=== PATIENT | female | born 2000 | race African-American/Black ===

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

== ENCOUNTER → 2020-09-21 | Outpatient (CLI) | payer BC ==
[2020-09-21 15:07] LABS: BASOPHILS % 0.2 % (0.0-2.0); HEMATOCRIT. 37.3 % (36.0-48.0); HEMOGLOBIN. 13.2 g/dL (12.0-16.0); LYMPHOCYTES % 36.3 % (20.0-50.0); MEAN CORPUSCULAR HEMOGLOBIN 31.1 pg (28.0-32.0); MEAN CORPUSCULAR VOLUME 87.8 fL (81.0-99.0); MEAN PLATELET VOLUME 8.5 fl (7.4-10.4); MONOCYTES % 5.6 % (2.0-8.0); NEUTROPHILS % 57.9 % (40.0-76.0); PLATELET 245 x1000/uL (130-400); RED BLOOD CELL COUNT 4.25 mill/uL (4.2-5.4); RED CELL DISTRIBUTION WIDTH 12.9 % (11.6-14.6)
[2020-09-21 15:15] LABS: CHLORIDE 107 mEq/L (98-107)
[2020-09-21 15:22] LABS: TOTAL IRON BINDING CAPACITY 298 ug/dL (250-450)
[2020-09-21 15:23] LABS: LDL CHOLESTEROL 113 mg/dL (5-100)
[2020-09-21 15:24] LABS: HDL CHOLESTEROL 55 mg/dL (40-59)
[2020-09-21 15:28] LABS: CLARITY URINE CLEAR (CLEAR); COLOR URINE YELLOW (YELLOW); KETONES URINE NEGATIVE (NEGATIVE); LEUKOCYTE ESTERASE URINE NEGATIVE (NEGATIVE); NITRITE URINE NEGATIVE (NEGATIVE); OCCULT BLOOD URINE NEGATIVE (NEGATIVE); PH URINE 7.5 (4.5-8.0); PROTEIN URINE NEGATIVE (NEGATIVE); SPECIFIC GRAVITY URINE 1.023 (1.005-1.030); UROBILINOGEN URINE 0.2 E.U./dL (0.2-1.0)
[2020-09-21 15:41] LABS: HEPATITIS B SURFACE ANTIGEN NEGATIVE
[2020-09-21 15:59] LABS: VITAMIN B12 SERUM 332 pg/mL (211-911)
[2020-09-21 16:10] LABS: HEPATITIS A AB IGM NEGATIVE (NEGATIVE)
[2020-09-23 08:12] LABS: FOLICLE STIMULATING HORMONE 7.2 mIU/mL (.); VITAMIN D 25-OH 24.6 ng/mL (30.0-100.0)
== END | disposition home or self-care (01) ==
LOC: LAB 14:11
PROVIDERS: ATTEND Internal Medicine Geriatric Medicine
DX: Z00.01 Encounter for general adult medical examination with abnormal findings (principal); E87.6 Hypokalemia
CPT/HCPCS: 36415; 80053; 80061; 81003; 82306; 82607; 82746; 83001; 83036; 83540; 83550; 84146; 84443; 85025; 86592; 86705; 86709; 86803; 87340

== ENCOUNTER → 2022-10-31 | Outpatient (CLI) | payer BC ==
[2022-10-31 10:24] LABS: BASOPHILS % 0.4 % (0.0-2.0); EOSINOPHILS % 0.1 % (0.0-5.0); HEMATOCRIT. 38.5 % (36.0-48.0); HEMOGLOBIN. 13.1 g/dL (12.0-16.0); LYMPHOCYTES % 39.1 % (20.0-50.0); MEAN CORPUSCULAR HEMOGLOBIN 29.7 pg (28.0-32.0); MEAN CORPUSCULAR VOLUME 87.4 fL (81.0-99.0); MEAN PLATELET VOLUME 8.3 fl (7.4-10.4); MONOCYTES % 6.1 % (2.0-8.0); NEUTROPHILS % 54.3 % (40.0-76.0); PLATELET 279 x1000/uL (130-400); RED BLOOD CELL COUNT 4.41 mill/uL (4.2-5.4); RED CELL DISTRIBUTION WIDTH 13.2 % (11.6-14.6)
[2022-10-31 10:41] LABS: CHLORIDE 108 mEq/L (98-107)
[2022-10-31 10:56] LABS: HDL CHOLESTEROL 45 mg/dL (40-59); LDL CHOLESTEROL 108 mg/dL (5-100); TOTAL IRON BINDING CAPACITY 332 ug/dL (250-450)
[2022-11-01 05:15] LABS: PROLACTIN 63.7 ng/mL (4.8-23.3); VITAMIN D 25-OH 25.7 ng/mL (30.0-100.0)
== END | disposition home or self-care (01) ==
LOC: LAB 09:53
PROVIDERS: ATTEND Internal Medicine Geriatric Medicine
DX: Z00.01 Encounter for general adult medical examination with abnormal findings (principal); E87.6 Hypokalemia; E22.1 Hyperprolactinemia; E55.9 Vitamin D deficiency, unspecified; F20.0 Paranoid schizophrenia; N39.0 Urinary tract infection, site not specified
CPT/HCPCS: 36415; 80053; 80061; 82306; 82728; 82746; 83036; 83540; 83550; 84146; 84443; 85025; 86592